=== PATIENT | male | born 1975 | race Caucasian/White ===

== ENCOUNTER 2024-01-22 13:35 | Emergency (ER) | payer OTHER ==
[~2024-01-22] VITALS: Ht 175.3 cm; Wt 117.5 kg
[2024-01-22 13:50] VITALS: TEMP 98.3
[2024-01-22] MEDS ORDERED: predniSONE 20 MG TABLET ONE (14:31)
[2024-01-22] MEDS: predniSONE 20 MG TABLET PO ONE (14:35)
[2024-01-22] MEDS ORDERED: ALBUTEROL FS 2.5 MG/3 ML VIAL.NEB ONE (14:55)
[2024-01-22] MEDS ORDERED: IPRATROPIUM NEB FS 0.5 MG/2.5 ML AMPUL.NEB ONE (14:55)
[2024-01-22 15:08] VITALS: O2SAT 97
[2024-01-22] MEDS: IPRATROPIUM NEB FS 0.5 MG/2.5 ML AMPUL.NEB NEB ONE (15:08)
[2024-01-22] MEDS: ALBUTEROL FS 2.5 MG/3 ML VIAL.NEB CONTNEB ONE (15:08)
[2024-01-22 15:20] VITALS: O2SAT 100
[2024-01-22 15:33] VITALS: O2SAT 100
[2024-01-22] MEDS ORDERED: ALBU8.5H8 INH (15:37)
[2024-01-22] MEDS ORDERED: PRED50TA PO (15:37)
[2024-01-22 16:24] VITALS: BP 130/87; O2SAT 97
== END 2024-01-22 16:20 | disposition home or self-care (01) ==
LOC: ER 13:35
DX: J20.8 Acute bronchitis due to other specified organisms (principal); B97.89 Other viral agents as the cause of diseases classified elsewhere; J45.901 Unspecified asthma with (acute) exacerbation; E11.9 Type 2 diabetes mellitus without complications; I10 Essential (primary) hypertension; Z20.822 Contact with and (suspected) exposure to COVID-19
CPT/HCPCS: 99285; 71045; 87426; 93005; 94640; J7512